=== PATIENT | female | born 1985 | race Two or more races ===

== ENCOUNTER → 2019-02-10 | Outpatient (CLI) | payer OTHER ==
[~2019-02-10] MED LIST: MULT-658 PO; NONE PER PT
[2019-02-10 16:06] LABS: BASOPHILS # (AUTO) 0.02 x10^3/uL (0-0.1); BASOPHILS % (AUTO) 0 % (0-1); EOSINOPHILS # (AUTO) 0.06 x10^3/uL (0-0.4); EOSINOPHILS % (AUTO) 1 % (1-7); LYMPHOCYTES # (AUTO) 1.78 x10^3/uL (1-3.4); LYMPHOCYTES % (AUTO) 23 % (22-44); MD NO; MEAN CORPUSCULAR HEMOGLOBIN 30.7 pg (27.0-34.8); MEAN CORPUSCULAR HGB CONC 33.8 g/dL (32.4-35.8); MEAN CORPUSCULAR VOLUME 90.8 fL (80-100); MEAN PLATELET VOLUME 8.5 fL (7.4-10.4); MONOCYTES # (AUTO) 0.56 x10^3/uL (0.2-0.8); MONOCYTES % (AUTO) 7 % (2-9); NEUTROPHILS # (AUTO) 5.24 x10^3/uL (1.8-6.8); NEUTROPHILS % (AUTO) 68 % (42-75); PLATELET COUNT 266 x10^3/uL (130-400); RED CELL DISTRIBUTION WIDTH 13.7 % (9.6-15.2)
[2019-02-10 16:24] LABS: ALANINE AMINOTRANSFERASE 19 U/L (12-78); ALBUMIN 3.8 g/dL (3.4-5.0); ANION GAP 7 mmol/L (5-15); CALCIUM 8.7 mg/dL (8.5-10.1); CHLORIDE 108 mmol/L (98-107); CREATININE 0.77 mg/dL (0.55-1.02)
[2019-02-10 16:26] LABS: ALKALINE PHOSPHATASE 66 U/L (45-117); BILIRUBIN,TOTAL 0.5 mg/dL (0.2-1.0); TOTAL PROTEIN 7.2 g/dL (6.4-8.2)
== END | disposition home or self-care (01) ==
LOC: STAR 15:07
PROVIDERS: ATTEND Obstetrics & Gynecology
DX: Z01.818 Encounter for other preprocedural examination (principal); N80.9 Endometriosis, unspecified; N94.10 Unspecified dyspareunia
CPT/HCPCS: 36415; 80053; 84703; 85025

== ENCOUNTER 2019-02-16 10:20 | Observation (INO) | payer OTHER ==
[~2019-02-16] VITALS: Ht 152.4 cm; Wt 61.7 kg
[2019-02-16] MEDS ORDERED: LACTATED RINGERS 1,000 ML IV SCH (10:43)
[2019-02-16] MEDS ORDERED: ESTROGENS CONJUGATED VAG CRM 0.625MG/1G, 30GM ONE (11:19)
[2019-02-16] MEDS ORDERED: FLUORESCEIN SODIUM 500 MG/5 ML ONE (11:19)
[2019-02-16] MEDS ORDERED: BUPIVACAINE/PF 0.25% ONE (11:19)
[2019-02-16] MEDS ORDERED: EPINEPHRINE 1 MG/ML, 1ML ONE (11:19)
[2019-02-16] MEDS ORDERED: INDIGO CARMINE 0.8%, 5ML ONE (11:28)
[2019-02-16 11:29] LABS: HCG UR SG 1.007 (1.003-1.030)
[2019-02-16] MEDS ORDERED: SCOPOLAMINE PATCH, 1.5MG PATCH.TD72 TD ONE (11:30)
[2019-02-16] MEDS ORDERED: GABAPENTIN 300 MG CAPSULE PO ONE (11:30)
[2019-02-16] MEDS ORDERED: DIAZEPAM 5 MG TABLET PO ONE (11:30)
[2019-02-16] MEDS ORDERED: ACETAMINOPHEN 500 MG TABLET PO ONE (11:30)
[2019-02-16] MEDS ORDERED: FENTANYL PF 250 MCG/5ML ONE (11:47)
[2019-02-16] MEDS ORDERED: MIDAZOLAM 1 MG/ML, 2ML ONE (11:47)
[2019-02-16] MEDS ORDERED: PROPOFOL 10 MG/ML, 20ML ONE (12:56)
[2019-02-16] MEDS ORDERED: GLYCOPYRROLATE 0.2MG/1ML, 5ML ONE (12:56)
[2019-02-16] MEDS ORDERED: ROCURONIUM 10MG/ML,5ML ONE (12:56)
[2019-02-16] MEDS ORDERED: ONDANSETRON 2MG/ML, 2ML ONE (12:56)
[2019-02-16] MEDS ORDERED: CEFAZOLIN 1,000 MG ONE (12:56)
[2019-02-16] MEDS ORDERED: NEOSTIGMINE 1 MG/ML, 10ML ONE (12:56)
[2019-02-16] MEDS ORDERED: KETOROLAC 30 MG/1 ML ONE (12:56)
[2019-02-16] MEDS ORDERED: LIDOCAINE-MPF 2% ,5ML ONE (12:56)
[2019-02-16] MEDS ORDERED: DEXAMETHASONE 4 MG/ML, 1ML ONE (12:56)
[2019-02-16] MEDS ORDERED: FENTANYL PF 100 MCG/2ML ONE (15:24)
[2019-02-16] MEDS ORDERED: OXYcodone 5 MG/5 ML ORAL.SOL UDC ONE (15:24)
[2019-02-16] MEDS: FENTANYL PF 100 MCG/2ML IV PRN ×4 (15:26→16:07)
[2019-02-16] MEDS ORDERED: PROMETHAZINE 25 MG/ML, 1ML IV PRN (16:00)
[2019-02-16] MEDS ORDERED: OXYcodone 5 MG/5 ML ORAL.SOL UDC PO PRN ×2 (16:00→17:00)
[2019-02-16 16:27] VITALS: BP 101/66
[2019-02-16] MEDS ORDERED: ACETAMINOPHEN 325 MG TABLET PO PRN (17:00)
[2019-02-16] MEDS ORDERED: ACETAMINOPHEN 650 MG SUPP PR PRN (17:00)
[2019-02-16] MEDS ORDERED: ONDANSETRON 2MG/ML, 2ML IV PRN (17:00)
[2019-02-16] MEDS ORDERED: HYDROmorphone 2 MG/ML, 1ML IV PRN (17:00)
[2019-02-16] MEDS ORDERED: BISACODYL 10 MG SUPP PR PRN (17:00)
[2019-02-16] MEDS ORDERED: morphine SULFATE 10 MG/ML, 1ML IV PRN (17:00)
[2019-02-16] MEDS: OXYcodone/APAP 5/325MG TABLET PO PRN ×2 (17:07→21:16)
[2019-02-16] MEDS: D5%-LACTATED RINGERS 1,000 ML IV SCH (17:08)
[2019-02-16 19:01] LABS: BASOPHILS % (AUTO) 0 % (0-1); EOSINOPHILS % (AUTO) 0 % (1-7); LYMPHOCYTES # (AUTO) 0.56 x10^3/uL (1-3.4); LYMPHOCYTES % (AUTO) 5 % (22-44); MD NO; MEAN CORPUSCULAR HGB CONC 33.9 g/dL (32.4-35.8); MEAN CORPUSCULAR VOLUME 91.6 fL (80-100); MEAN PLATELET VOLUME 8.3 fL (7.4-10.4); MONOCYTES # (AUTO) 0.18 x10^3/uL (0.2-0.8); MONOCYTES % (AUTO) 2 % (2-9); NEUTROPHILS # (AUTO) 9.97 x10^3/uL (1.8-6.8); NEUTROPHILS % (AUTO) 93 % (42-75); PLATELET COUNT 212 x10^3/uL (130-400); RED BLOOD COUNT 3.81 x10^6/uL (3.82-5.3); RED CELL DISTRIBUTION WIDTH 13.4 % (9.6-15.2)
[2019-02-16 19:11] LABS: ANION GAP 6 mmol/L (5-15); CALCIUM 7.8 mg/dL (8.5-10.1); CHLORIDE 112 mmol/L (98-107); CREATININE 0.73 mg/dL (0.55-1.02)
[2019-02-16 20:17] VITALS: BP 103/58
[2019-02-16] MEDS ORDERED: SENNA/DOCUSATE TABLET PO SCH (21:00)
[2019-02-16] MEDS: IBUPROFEN 600 MG TABLET PO SCH (21:17)
[2019-02-16] MEDS: DOCUSATE 100 MG CAPSULE PO SCH (21:17)
[2019-02-16] MEDS: SIMETHICONE 80 MG CHEW TAB PO SCH (21:17)
[2019-02-17 00:02] VITALS: BP 105/60
[2019-02-17] MEDS: D5%-LACTATED RINGERS 1,000 ML IV SCH ×2 (00:57→09:00)
[2019-02-17] MEDS: OXYcodone/APAP 5/325MG TABLET PO PRN ×4 (01:21→14:12)
[2019-02-17 04:22] VITALS: BP 90/57
[2019-02-17] MEDS: IBUPROFEN 600 MG TABLET PO SCH ×2 (05:41→11:11)
[2019-02-17 05:45] LABS: BASOPHILS # (AUTO) 0.02 x10^3/uL (0-0.1); BASOPHILS % (AUTO) 0 % (0-1); EOSINOPHILS % (AUTO) 0 % (1-7); LYMPHOCYTES # (AUTO) 1.49 x10^3/uL (1-3.4); LYMPHOCYTES % (AUTO) 15 % (22-44); MD NO; MEAN CORPUSCULAR HEMOGLOBIN 31.2 pg (27.0-34.8); MEAN CORPUSCULAR HGB CONC 34.4 g/dL (32.4-35.8); MEAN CORPUSCULAR VOLUME 90.6 fL (80-100); MEAN PLATELET VOLUME 8.6 fL (7.4-10.4); MONOCYTES # (AUTO) 0.89 x10^3/uL (0.2-0.8); MONOCYTES % (AUTO) 9 % (2-9); NEUTROPHILS # (AUTO) 7.81 x10^3/uL (1.8-6.8); NEUTROPHILS % (AUTO) 77 % (42-75); PLATELET COUNT 213 x10^3/uL (130-400); RED BLOOD COUNT 3.49 x10^6/uL (3.82-5.3); RED CELL DISTRIBUTION WIDTH 13.7 % (9.6-15.2)
[2019-02-17 05:49] LABS: ANION GAP 6 mmol/L (5-15); CHLORIDE 113 mmol/L (98-107); CREATININE 0.59 mg/dL (0.55-1.02)
[2019-02-17 09:22] VITALS: BP 84/51
[2019-02-17] MEDS: SIMETHICONE 80 MG CHEW TAB PO SCH (09:49)
[2019-02-17] MEDS: DOCUSATE 100 MG CAPSULE PO SCH (09:49)
[2019-02-17 10:05] LABS: BASOPHILS # (AUTO) 0.02 x10^3/uL (0-0.1); BASOPHILS % (AUTO) 0 % (0-1); EOSINOPHILS % (AUTO) 0 % (1-7); LYMPHOCYTES # (AUTO) 2.26 x10^3/uL (1-3.4); LYMPHOCYTES % (AUTO) 25 % (22-44); MD NO; MEAN CORPUSCULAR HEMOGLOBIN 31.4 pg (27.0-34.8); MEAN CORPUSCULAR HGB CONC 34.6 g/dL (32.4-35.8); MEAN CORPUSCULAR VOLUME 90.8 fL (80-100); MEAN PLATELET VOLUME 8.5 fL (7.4-10.4); MONOCYTES # (AUTO) 0.69 x10^3/uL (0.2-0.8); MONOCYTES % (AUTO) 8 % (2-9); NEUTROPHILS # (AUTO) 5.91 x10^3/uL (1.8-6.8); NEUTROPHILS % (AUTO) 67 % (42-75); PLATELET COUNT 199 x10^3/uL (130-400); RED CELL DISTRIBUTION WIDTH 13.4 % (9.6-15.2)
[2019-02-17] MEDS ORDERED: OXYC-302 PO (10:59)
[2019-02-17] MEDS ORDERED: IBUP-1222 PO (11:00)
[2019-02-17] MEDS ORDERED: DOCU-131 PO (11:01)
[2019-02-17 14:15] VITALS: BP 92/55
== END 2019-02-17 15:00 | disposition home or self-care (01) ==
LOC: OUT 10:20 → 4NOR 16:25 → OUT 16:45 → DCLOUNGE 02-17 14:44
PROVIDERS: ADMIT Obstetrics & Gynecology; ATTEND Obstetrics & Gynecology
DX: N94.6 Dysmenorrhea, unspecified (principal); N94.10 Unspecified dyspareunia; N85.4 Malposition of uterus; N83.00 Follicular cyst of ovary, unspecified side; N80.3 Endometriosis of pelvic peritoneum; N80.1 Endometriosis of ovary
CPT/HCPCS: 36415; 58552; 80048; 81025; 85025; 86850; 86900; 88307; 96374; G0378; J0690; J1100; J1885; J2250; J2270; J2405; J2704; J2710; J3010; J3490; J7120; J7121; J0171